=== PATIENT | female | born 1955 | race Caucasian/White ===

== ENCOUNTER 2021-10-25 12:55 | Emergency (ER) | payer OTHER, SELFPAY ==
--- NOTE | ~2021-10-25 | CT_ITS ---
EXAMINATION: CT ABDOMEN AND PELVIS WITHOUT CONTRAST CLINICAL INFORMATION: Upper abdominal pain, concern for bowel obstruction COMPARISON: None TECHNIQUE: Multidetector volumetric imaging was performed from the superior aspect of the liver through the pubic symphysis. Sagittal and coronal reformatted images were obtained on the technologist's workstation. This CT examination was performed using dose optimization techniques as appropriate, variously including the following: *Automated exposure control *Adjustment of mA and/or kV according to patient size (this includes techniques or standardized protocols for targeted exams where dose is matched to indication/reason for exam; i.e. extremities or head) *Use of iterative reconstruction technique DLP: 844 mGy-cm FINDINGS: LUNG BASES: Small air cyst in the right lung base. Minimal atelectasis or scarring in the inferior lingula. LIVER, GALLBLADDER, AND BILIARY TREE: Normal hepatic size. Diffuse hepatic hypoattenuation compatible with steatosis. Small areas of focal fatty sparing in the medial segment left liver lobe and caudate. No other liver lesions. No morphologic features of cirrhosis. No biliary ductal dilation. Status post cholecystectomy with surgical clips in the gallbladder fossa. PANCREAS: Unremarkable. SPLEEN: Unremarkable. ADRENAL GLANDS: 2.1 cm right adrenal nodule with attenuation values of 7-8 Hounsfield units compatible with a lipid rich adenoma. Normal left adrenal gland. KIDNEYS AND URETERS: The kidneys are normal in size, shape, and attenuation. No hydronephrosis, hydroureter, or calculi seen. No perinephric stranding. BLADDER: Unremarkable. GASTROINTESTINAL TRACT: No dilated bowel loops to suggest obstruction. No bowel wall thickening. Minimal sigmoid diverticulosis. No evidence of acute diverticulitis. Unremarkable appearance of the pancreas. Submucosal fat deposition in the cecum and ascending colon which may be a normal variant or sequela of chronic mural inflammation. No ascites or free air. ABDOMINAL WALL: Small fat-containing umbilical hernia. LYMPH NODES: No lymphadenopathy. VASCULAR: Normal caliber abdominal aorta. Retroaortic left renal vein noted. PELVIC VISCERA: Asymmetric fullness of the upper right vagina on axial image 81. Gynecologic structures otherwise grossly unremarkable. OSSEOUS STRUCTURES: Vertebral body hemangioma on the left at L1. No suspicious appearing osseous lesion. No acute fracture. 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 Mild multilevel degenerative disc disease. CT/CT abdomen pelvis wo con IMPRESSION: 1. No evidence of bowel obstruction or other acute intra-abdominal process. 2. Hepatic steatosis. 3. Incidental finding of a 2.1 cm lipid rich right adrenal adenoma. 4. Asymmetric fullness in the region of the upper right vagina, nonspecific. Suggest correlation with internal exam. Fleischner guidelines were followed.
[2021-10-25 13:51] VITALS: BP 133/86; PULSE 84; RESP 18; TEMP 36.4; O2SAT 97; BMI 35.5
[2021-10-25 14:07] LABS: MANUAL DIFF FLAG NO
[2021-10-25 14:08] LABS: Basophils Percent Auto 0.5 % (0-2); Eosinophils Absolute Auto 0.2 X10*3/uL (0.0-0.4); Hematocrit 41.6 % (37.0-47.0); Hemoglobin 13.9 g/dl (12.0-16.0); Imm Gran Abs Auto 0.01 X10*3/uL (0.00-0.03); Imm Gran Pct Auto 0.1 % (0.0-0.4); Lymphocytes Absolute Auto 2.4 X10*3/uL (1.2-4.9); Lymphocytes Percent Auto 31.1 % (20-40); Mean Corpuscular HGB Conc 33.4 g/dl (31.0-35.0); Mean Corpuscular Hemoglobin 29.6 pg (27.0-33.0); Mean Corpuscular Volume 88.5 fL (80.0-98.0); Mean Platelet Volume 9.9 fL (9.4-12.3); Monocytes Absolute Auto 0.6 X10*3/uL (0.1-1.2); Monocytes Percent Auto 8.4 % (2-11); Neutrophils Absolute Auto 4.4 x10*3/uL (2.0-8.3); Neutrophils Percent Auto 57.9 % (45-73); Platelet Count 231 X10*3/uL (160-400); Red Cell Distribution Width 12.7 % (11.0-16.0); White Blood Count 7.6 X10*3/uL (4.8-10.8)
[2021-10-25 14:44] LABS: Alanine Aminotransferase 28 U/L (0-31); Albumin Level 4.3 g/dL (3.5-5.0); Alkaline Phosphatase 90 U/L (39-117); Anion Gap 9 (12-20); Aspartate Amino Transferase 22 U/L (5-31); Bilirubin Total 0.5 mg/dL (0.0-1.0); Blood Urea Nitrogen 11 mg/dL (9-16); Calcium 9.4 mg/dL (8.4-10.2); Carbon Dioxide 26 mmol/L (22-29); Chloride 107 mmol/L (96-108); Creatinine Clr Calc Pharmacy 85.8; Estimated Glomerular Filt Rate > 60; Glucose Random 103 mg/dL (60-115); Potassium 4.3 mmol/L (3.3-5.1); Sodium 138 mmol/L (135-145); Total Protein 7.3 g/dL (6.5-8.0)
[2021-10-25 14:54] LABS: TSH reflex Free T4 1.27 uIU/mL (0.32-4.0)
--- NOTE | 2021-10-25 17:41 | ED.ABDPAIN ---
HPI - Abdominal Pain General Chief Complaint: Abdominal Pain Stated Complaint: QUE[facility] [employer] BOWEL OBSTRUCTION Time Seen by Provider: 10/25/21 17:27 Source: patient Mode of arrival: ambulatory Limitations: no limitations History of Present Illness HPI narrative: This is a 65-year-old female no significant medical history presenting to the emergency department with complaints of changes in bowel habits x3 weeks. Patient tells me that over the past 3 weeks she has noticed that she has been getting constipated for a while. She tells me that she did not have a bowel movement for a few days which is very abnormal for her. He tells me now her bowel movements are very small, and not normal. She reports significant abdominal bloating. She reports passing a lot of gas. She also reports associated nausea however no vomiting. Denies chest pain, shortness of breath, fevers, chills, vomiting, blood per rectum, weakness. Denies previous abdominal surgeries, denies history of malignancy. MD elicited complaint: abdominal pain Pertinent past history: none Onset (ago): week(s) (3) Pain Consistency: constant Location: diffuse Severity: moderate Quality: cramping and other ( Gassy ) Radiation: none Migration to: no migration Exacerbating factors: nothing Relieving factors: nothing Associated symptoms: denies other symptoms Related Data Previous Rx's Medication Instructions Recorded docusate sodium 100 mg capsule 100 mg PO BID #20 caps 10/25/21 (Colace) polyethylene glycol 3350 17 17 g PO BID #238 grams 10/25/21 gram/dose oral powder (Miralax) sennosides 8.6 mg tablet (senna) 8.6 mg PO BEDTIME #14 tabs 10/25/21 Allergies Allergy/AdvReac Type Severity Reaction Status Date / Time mold Allergy Unknown SINUS Unverified 01/28/20 15:12 PROBLEMS Review of Systems Review of Systems Constitutional : No Weight loss, No Fever, No Chills, No Fatigue, No Malaise ENT/Mouth : No sore throat, No Rhinorrhea Eyes: No Eye Pain, No Swelling, No Redness Cardiovascular : No Chest Pain, No SOB, No Dyspnea on Exertion, No Orthopnea, No Edema, No Palpitations Respiratory : No Cough, No Sputum, No Wheezing Gastrointestinal : No Nausea, No Vomiting, No Diarrhea, No Constipation, + abdominal Pain, No Hematochezia, No Melena Genitourinary : No Dysuria, No Urinary Frequency, No Hematuria, Musculoskeletal : No joint pain, No Myalgias, No Joint Swelling Skin : No Skin Lesions, No rash Neuro : No Weakness, No Numbness, No Dizziness, No Headache Psych : No Anxiety/Panic, No Depression All other systems reviewed and are negative Yes all other systems are reviewed and are negative FORMERLY [facility], [facility] Past Medical History Attestation statement: The following information was validated with the patient. Source: old records reviewed and nursing notes reviewed Social History Social History Advance Directives: No Advance Directives Information Provided: No Physical Exam ED Vital Signs: Vital Signs - 24 hr 10/25/21 13:51 10/25/21 19:43 Temperature 97.6 F 98.4 F Pulse Rate 84 72 Respiratory Rate 18 15 Blood Pressure 133/86 129/80 Pulse Oximetry 97 97 Oxygen Delivery Method Room Air Room Air BMI result Body Mass Index 35.5 VSS Appearance: Alert.? Oriented X3.? No acute distress.? Head: Normocephalic, atraumatic, no step-offs or deformities Eyes: Pupils equal, round and reactive to light.? ENT: Pharynx normal.? Neck: Normal inspection.? Neck supple.? CVS: Normal heart rate and rhythm.? Pulses normal.? Respiratory: No respiratory distress.? Breath sounds normal.? Abdomen: Soft and diffusely tender with normoactive bowel sounds bloated abdomen.? Skin: Skin warm and dry.? Normal skin color.? Normal skin turgor.? Extremities: No lower extremity edema.? No calf ttp. 5/5 strength to bilateral upper and lower extremities Back: No midline tenderness, no C-spine tenderness, full range of motion, no CVA tenderness bilaterally Neuro: Oriented X 3.? No motor deficit.? No sensory deficit. CN 2-12 intact Course Reevaluation(s) Reevaluation #1: Patient's CT of the abdomen pelvis with no evidence of bowel obstruction or other acute intra-abdominal processes. Incidental finding of 2.1 cm lipid rich right adrenal adenoma noted on scan, she was informed of this finding. Asymmetric fullness in the region of the upper right vagina however patient is not having abdominal pain specifically to the right lower quadrant. Patient tells me that she has been evaluated in the past for OBGYN issues she will follow-up with her OBGYN. Patient's history and physical examination with low suspicion for ovarian torsion. Patient's CBC with no acute findings. Chemistry with no acute electrolyte abnormalities requiring intervention. TSH 1.27. Educated patient on plan, diagnosis and treatment. Answered all questions. Patient comfortable with plan i feel comfortable w/ comfortable discharge home. Time: 20:09 MDM - Abdominal Pain MDM Narrative Medical decision making narrative: 1730 65-year-old female presents with abdominal bloating, changes in bowel habits, passing flatus times x3 weeks worsening over the past few days. Was seen by her PCP was concerned for bowel obstruction. Physical examination with a bloated abdomen, normoactive bowel sounds, diffusely tender, regular rate and rhythm, lungs clear, neuro exam nonfocal. Plan at this time to obtain basic labs and abdominal CT to rule out obstruction. Medical Records Attestation: I reviewed the patient's medical records. Lab Data Attestation: I reviewed the patient's lab results. Result diagrams: 10/25/21 14:10/25/21 14:01 Labs: Lab Results 10/25/21 10/25/21 Range/Units 14: 14:01 WBC 7.6 (4.8-10.8) X10*3/uL RBC 4.70 (4.20-5.50) X10*6/uL Hgb 13.9 (12.0-16.0) g/dl Hct 41.6 (37.0-47.0) % MCV 88.5 (80.0-98.0) fL MCH 29.6 (27.0-33.0) pg MCHC 33.4 (31.0-35.0) g/dl RDW 12.7 (11.0-16.0) % Plt Count 231 (160-400) X10*3/uL MPV 9.9 (9.4-12.3) fL Immature Gran % (Auto) 0.1 (0.0-0.4) % Neut % (Auto) 57.9 (45-73) % Lymph % (Auto) 31.1 (20-40) % [place] % (Auto) 8.4 (2-11) % Eos % (Auto) 2.0 (0-4) % Baso % (Auto) 0.5 (0-2) % Lymph # (Auto) 2.4 (1.2-4.9) X10*3/uL [place] # (Auto) 0.6 (0.1-1.2) X10*3/uL Eos # (Auto) 0.2 (0.0-0.4) X10*3/uL Baso # (Auto) 0.0 (0.0-0.2) X10*3/uL Abs Immat Gran (auto) 0.01 (0.00-0.03) X10*3/uL Absolute Neuts (auto) 4.4 (2.0-8.3) x10*3/uL Absolute Nucleated RBC 0.000 (0.0-0.012) X10*3/uL Nucleated RBC % (auto) 0.0 (0.0-0.2) /100WBC Sodium 138 (135-145) mmol/L Potassium 4.3 (3.3-5.1) mmol/L Chloride 107 (96-108) mmol/L Carbon Dioxide 26 (22-29) mmol/L Anion Gap 9 L (12-20) BUN 11 (9-16) mg/dL Creatinine 0.80 (0.5-1.4) mg/dL Estim Creat Clear Calc 85.8 Estimated GFR > 60 Random Glucose 103 (60-115) mg/dL Calcium 9.4 (8.4-10.2) mg/dL Total Bilirubin 0.5 (0.0-1.0) mg/dL AST 22 (5-31) U/L ALT 28 (0-31) U/L Alkaline Phosphatase 90 (39-117) U/L Total Protein 7.3 (6.5-8.0) g/dL Albumin 4.3 (3.5-5.0) g/dL TSH 1.27 (0.32-4.0) uIU/mL Critical Care Time Critical Care Time Critical Care Time: No Discharge Plan Discharge Clinical Impression: Constipation, Abdominal pain Patient Disposition: Home, Self-Care Instructions: Constipation (ED), High Fiber Diet (ED), Abdominal Pain (ED) Additional Instructions: Take your medications as prescribed. If you were prescribed antibiotics today, it is important that you take your medication to their entirety, do not skip any doses, do not finish them early. Follow-up with your primary care provider this week. Follow-up with gastroenterology is this appears to be an issue that has been going on for a while. Also follow-up with your OBGYN for the abnormal finding noted on your CT scan. Return to the emergency department with new or worsening symptoms. Such as fevers, chills, chest pain, shortness of breath, nausea, vomiting, dizziness, headache, vision changes, lethargy In case of emergency call 911 If you do not have a bowel movement for 4 days or greater you should see your PCP or come to the emergency department CT/CT abdomen pelvis wo con IMPRESSION: 1. No evidence of bowel obstruction or other acute intra-abdominal process. 2. Hepatic steatosis. 3. Incidental finding of a 2.1 cm lipid rich right adrenal adenoma. 4. Asymmetric fullness in the region of the upper right vagina, nonspecific. Suggest correlation with internal exam.? ? Fleischner guidelines were followed. Prescriptions: New sennosides [senna] 8.6 mg tablet 8.6 mg PO BEDTIME Qty: 14 0RF docusate sodium [Colace] 100 mg capsule 100 mg PO BID Qty: 20 0RF polyethylene glycol 3350 [Miralax] 17 gram/dose powder 17 g PO BID Qty: 238 0RF Referrals: Physician,Carrington Toussaint [Primary Care Provider] - 2 days Raghu Winslow [Physician] - 2 days Stand Alone Forms: Work/School Release
[2021-10-25 19:43] VITALS: BP 129/80; PULSE 72; RESP 15; TEMP 36.9; O2SAT 97
[2021-10-25] MEDS: bisacodyL 5 MG TABLET.DR 10 MG PO (20:06)
[2021-10-25] MEDS: Simethicone 80 MG TAB.CHEW PO (20:06)
--- NOTE | 2021-10-25 20:07 | PC.NURSE ---
pt a&ox3, vss, denies any pain at this time, medicated per provider order, pt pending provider to review CT findings. no new orders at this time.
== END 2021-10-25 20:27 | disposition home or self-care (01) ==
PROVIDERS: Emergency Provider Internal Medicine
DX: K59.00 Constipation, unspecified (principal); R10.9 Unspecified abdominal pain; D35.01 Benign neoplasm of right adrenal gland
CPT/HCPCS: 36415; 74176; 80053; 84443; 85025; 99283; 99284